=== PATIENT | male | born 1950 | race Caucasian/White ===

== ENCOUNTER 2020-10-29 13:08 | Outpatient (CLI) | payer MEDICARE, BC ==
--- NOTE | 2020-10-29 15:39 | MRI ---
MRI Pelvis W WO Con History: Prostate cancer Comparison: None. Findings: Multiplanar multisequence MRI of the pelvis was performed with and without intravenous cont rast using prostate protocol. The exam was reviewed on an independent 3-D workstation. Prostate measures 3.2 x 2.4 x 2.9 cm for a volume of 12.5 mL. Peripheral zone: No focal markedly hyperintense signal on the high B value DWI or low signal on ADC. Transitional zone: No lentiform or noncircumscribed moderately hypointense signal on T2. Neurovascular bundles: Intact. Seminal vesicles: Intact. Prostatic capsule: Intact. Bones: No abnormal focus of marrow signal replacement on the T1 weighted sequence. Lymph nodes: No pelvic adenopathy. Intrapelvic soft tissues: Unremarkable. Impression: PiRads 2: Low (clinically significant prostate cancer is unlikely to be present).
== END 2020-10-29 13:09 | disposition home or self-care (01) ==
LOC: TBSIIMAG 13:08
PROVIDERS: ATTEND Radiology Radiation Oncology
DX: C61 Malignant neoplasm of prostate (principal)
CPT/HCPCS: 72197